=== PATIENT | female | born 1995 | race Caucasian/White ===

== ENCOUNTER 2021-05-08 17:21 | Emergency (ER) | payer OTHER ==
[~2021-05-08] VITALS: Ht 154.9 cm; Wt 72.6 kg
[2021-05-08 17:21] VITALS: BP 136/74
--- NOTE | 2021-05-08 17:21 | NUR ---
ERMD at bedside for US and evaluation of pt.
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
[2021-05-08 18:01] VITALS: BP 136/74
--- NOTE | 2021-05-08 18:03 | NUR ---
Patient discharged with v/s stable. Written and verbal after care instructions given and explained. Patient alert, oriented and verbalized understanding of instructions. Wheel Chair Assisted with steady gait. All questions addressed prior to discharge. ID band removed. Patient advised to follow up with PMD. No Rx given. Patient educated on indication of medication including possible reaction and side effects. Opportunity to ask questions provided and answered.
== END 2021-05-08 18:01 | disposition home or self-care (01) ==
LOC: MED 17:21
DX: O9A.213 Injury, poisoning and certain other consequences of external causes complicating pregnancy, third trimester (principal); Z00.01 Encounter for general adult medical examination with abnormal findings; O36.8130 Decreased fetal movements, third trimester, not applicable or unspecified; Z3A.32 32 weeks gestation of pregnancy; V89.2XXA Person injured in unspecified motor-vehicle accident, traffic, initial encounter; Y93.89 Activity, other specified; Y92.410 Unspecified street and highway as the place of occurrence of the external cause; Y99.8 Other external cause status
CPT/HCPCS: 99284

== ENCOUNTER 2021-05-08 18:15 | Observation (INO) | payer OTHER, SELFPAY ==
[~2021-05-08] VITALS: Ht 157.5 cm; Wt 72.6 kg
== END 2021-05-08 19:20 | disposition left against medical advice (07) ==
LOC: MLD 18:15
PROVIDERS: ADMIT Obstetrics & Gynecology; ATTEND Obstetrics & Gynecology
DX: O36.8130 Decreased fetal movements, third trimester, not applicable or unspecified (principal); Z53.21 Procedure and treatment not carried out due to patient leaving prior to being seen by health care provider; Z3A.32 32 weeks gestation of pregnancy; V89.2XXA Person injured in unspecified motor-vehicle accident, traffic, initial encounter; Y93.89 Activity, other specified; Y92.89 Other specified places as the place of occurrence of the external cause
CPT/HCPCS: G0378; G0379